=== PATIENT | female | born 1970 | race Caucasian/White ===

== ENCOUNTER → 2017-02-08 | Outpatient (CLI) | payer BC ==
--- NOTE | 2017-02-08 14:48 | RAD ---
Metastatic skeletal survey, 02/08/2017: History: Abnormal serum protein Multiple views of the bony skeleton were obtained with the following findings are delineated: 1. A PA view of the chest reveals no destructive bony lesion. The heart size is normal. The lungs are clear. A lap band type device is noted related to the proximal stomach. 2. A lateral view of the skull reveals no calvarial abnormality. The patient is edentulous. 3. AP and lateral views of the cervical spine demonstrate moderate disc space narrowing and marginal spurring at C6-7. There are mild scattered degenerative changes involving the facet joints. No fracture or destructive bony lesion is seen. 4. AP and lateral views of the thoracolumbar spine demonstrates scattered marginal spurs. There is mild disc space narrowing at multiple levels. No fracture or destructive bony lesion is seen. 5. An AP view of the pelvis reveals no destructive bony lesion. There is mild narrowing of the hip joints with mild marginal spurring. 6. AP views of both humeri, forearms, femurs and lower legs reveal no fracture or destructive bony lesion. IMPRESSION: 1. Scattered degenerative changes in the spine and at both hips as described above. 2. No destructive bony lesion is detected.
== END | disposition home or self-care (01) ==
LOC: RAD 13:36
PROVIDERS: ATTEND Internal Medicine Hematology & Oncology
DX: R77.8 Other specified abnormalities of plasma proteins (principal)
CPT/HCPCS: 77075

== ENCOUNTER → 2019-12-21 | Outpatient (CLI) | payer BC ==
--- NOTE | 2019-12-21 13:33 | RAD ---
Examination: 1. Ultrasound-guided anterior left breast mass biopsy. 2. Ultrasound-guided posterior left breast mass biopsy. 3. Left diagnostic post procedure mammogram. INDICATION: 49-year-old woman with suspicious masses in the left breast recommended for ultrasound-guided core needle biopsy. The first biopsy target was a pair of directly adjacent oval 14 mm and 11 mm masses in the posterior upper outer left breast reported at the 3:00 position 9 cm from the nipple which represented the area of palpable concern as reported by the patient which initiated her diagnostic workup and which ultimately resulted in a biopsy recommendation. The second biopsy target is is a 13 mm oval mass nearer the nipple areola complex reported at the 3:00 position 4 cm from the nipple that contains internal microcalcifications. COMPARISON: Left diagnostic mammogram and targeted left breast ultrasound of 11/24/2019. TECHNIQUE AND FINDINGS: Informed consent was obtained and an appropriate procedural pause observed. Using standard sterile technique, ultrasound guidance and local anesthesia, the pair of solid oval masses in the posterior upper outer left breast previously reported at the 3:00 position 9 cm from the nipple were targeted for ultrasound-guided biopsy. Two passes were first obtained of the larger, 14 mm mass and then an additional 2 passes of the adjacent slightly smaller 11 mm mass were obtained. Together, these represent the posterior left breast mass targeted for biopsy. As both masses were in close proximity with one another, the samples were stored in the same formalin jar for analysis as both would likely require similar subsequent management. An S shaped biopsy marker was deployed in the slightly smaller and more posterior mass. Hemostasis was assured with direct breast compression for 10 minutes. Using fresh, sterile equipment, attention was then turned to the 3:00 position lesion 4 cm from the nipple (representing the anterior left breast mass) and 3 passes were made through the lesion with a 14-gauge needle. An open padlock biopsy marker was deployed in the mass and hemostasis was assured with direct breast compression for 10 minutes. Thereafter, postprocedure mammogram was obtained showing satisfactory deployment of both biopsy markers in the targeted masses. Breast parenchyma is composed of scattered fibroglandular densities. Note that the slightly larger and more anterior 14 mm biopsied mass does not contain a biopsy marker but was sampled on this examination. The S shaped marker in the adjacent (and less mammographically conspicuous more posterior mass) serves as as a proxy for this lesion as well. Patient tolerated the procedures without incident. There were no apparent complications. IMPRESSION: Successful left breast ultrasound-guided core needle biopsy of 3 masses in 2 separate procedures. Pathology results are pending. An addendum will be issued once pathology results become available.
== END | disposition home or self-care (01) ==
LOC: US 10:54
PROVIDERS: ATTEND Surgery
DX: N63.20 Unspecified lump in the left breast, unspecified quadrant (principal)
CPT/HCPCS: 19083; 19084; 77065; C1713; 19081; 76942